=== PATIENT | male | born 1965 | race Hispanic/Latino ===

== ENCOUNTER 2019-10-16 16:16 | Emergency (ER) | payer MEDICAID ==
[2019-10-16 17:57] LABS: Bilirubin,Urine NEG (Negative); Blood,Urine LG (Negative); Color,Urine Red (Yellow); Mucus,Urine 1+ /HPF; Urobilinogen,Urine < 2.0 mg/dL (<2.0)
[2019-10-16 17:58] LABS: RBC,Urine > 182.0 /HPF (0.0-6.0)
[2019-10-16] MEDS ORDERED: MORPHINE 4 MG/1 ML INJ IM ONE (18:23)
[2019-10-16] MEDS ORDERED: ONDANSETRON 4 MG/2 ML INJ IM ONE (18:23)
[2019-10-16 18:52] LABS: Hematocrit 29.9 % (35.5-45.6); Hemoglobin 10.5 gm/dl (11.8-15.2); Mean Corpuscular HGB Conc 35 % (32-34); Mean Corpuscular Volume 95 fl (84-94); Platelet Count 164 K/mm3 (140-440); Red Blood Count 3.14 M/mm3 (3.65-5.03); Red Cell Distribution Width 14.1 % (13.2-15.2)
[2019-10-16 19:05] LABS: Alanine Aminotransferase 20 units/L (7-56); Albumin 2.9 g/dL (3.9-5); BUN/Creatinine Ratio 17; Blood Urea Nitrogen 10 mg/dL (9-20); Calcium 8.8 mg/dL (8.4-10.2); Hemolysis Index 25
[2019-10-16 19:56] LABS: Basophils % (Manual) 0 % (0.0-1.8); Total Cells Counted 100
[2019-10-16 19:57] LABS: Anisocytosis 1+; Platelet Estimate Consistent w Auto; Tear Drop Cells Rare
[2019-10-16 20:27] VITALS: BP 108/69
--- NOTE | 2019-10-16 20:51 | Cat Scan Report ---
CT abdomen pelvis wo con INDICATION: flank pain/hematuria. TECHNIQUE: All CT scans at this location are performed using CT dose reduction for ALARA by means of automated e xposure control. COMPARISON: None available. FINDINGS: Parenchymal density in the right lung base is most likely atelectasis. Gallbladder is quite distended, with a single stone. Left and caudate lobes of the liver are enlarge d, with somewhat lobular contour the liver, consistent with cirrhosis. Spleen is slightly enlarged. T here appear to be splenic and gastrohepatic varices, indicating portal venous hypertension. Pancreas is negative. Ureteral stent is present in the left kidney. Left kidney is very mildly hydronephrotic, with what ap pears to be a calculus at the junction of the proximal and mid left ureter. Right kidney and both adr enals are negative. Abdominal aorta is atherosclerotic but normal in size. No significant retroperito estuardo adenopathy. Pelvis Left ureteral stent passes into the bladder. Urinary bladder is grossly negative. I cannot specifical ly identify the appendix, but there is no pericecal inflammation. The small bowel is fluid-filled and mildly distended, most likely ileus. No appreciable free fluid. There is a somewhat comminuted fracture involving virtually the entire fourth lumbar vertebra. IMPRESSION: 1. Distended gallbladder with a single stone. 2. Hepatic cirrhosis, splenomegaly and portal venous hypertension, with splenic and gastrohepatic johnny ices. 3. Left ureteral stent with mild left hydronephrosis. Probable calculus in the proximal to mid left u reter. 4. Comminuted fracture involving the fourth lumbar vertebra. Signer Name: Vitor Caceres MD Signed: 10/16/2019 8:47 PM Workstation Name: [id number]
[2019-10-16] MEDS ORDERED: ASPIRIN 325 MG TAB PO ONE (21:00)
[2019-10-16] MEDS ORDERED: ASPIRIN 325 MG TAB ONE (21:03)
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
== END 2019-10-16 22:25 | disposition home or self-care (01) ==
LOC: ED 16:16
DX: S32.040A Wedge compression fracture of fourth lumbar vertebra, initial encounter for closed fracture (principal); N39.0 Urinary tract infection, site not specified; I25.2 Old myocardial infarction; M79.604 Pain in right leg; K21.9 Gastro-esophageal reflux disease without esophagitis; B19.20 Unspecified viral hepatitis C without hepatic coma; F17.200 Nicotine dependence, unspecified, uncomplicated; F10.10 Alcohol abuse, uncomplicated; Z98.890 Other specified postprocedural states; Z86.73 Personal history of transient ischemic attack (TIA), and cerebral infarction without residual deficits; Z79.899 Other long term (current) drug therapy; V05.00 Pedestrian on foot injured in collision with railway train or railway vehicle in nontraffic accident; Y93.89 Activity, other specified; Y92.410 Unspecified street and highway as the place of occurrence of the external cause; Y99.8 Other external cause status
CPT/HCPCS: 36415; 74176; 80053; 81001; 85007; 85025; 87086; 96372; 99284; J2270; J2405